=== PATIENT | male | born 1970 | race Caucasian/White ===

== ENCOUNTER 2017-07-30 13:50 | Emergency (ER) | payer BC, OTHER ==
[~2017-07-30 13:50] MED LIST: NAPR500 PO
[2017-07-30 14:23] VITALS: BP 100/55; PULSE 131; RESP 16; TEMP 98.6; O2SAT 92
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
== END 2017-07-30 19:11 | disposition left against medical advice (07) ==
LOC: NEDAMB 13:50 → NETRI 19:11
DX: F11.10 Opioid abuse, uncomplicated (principal); F17.200 Nicotine dependence, unspecified, uncomplicated
CPT/HCPCS: 99281